=== PATIENT | female | born 1935 | race Caucasian/White ===

== ENCOUNTER 2021-08-31 10:47 | Emergency (ER) | payer MEDICARE, SELFPAY ==
--- NOTE | ~2021-08-31 | XR_ITS ---
EXAMINATION: XR CHEST CLINICAL INFORMATION: Weakness COMPARISON: Previous chest x-ray June 2016 TECHNIQUE: Frontal view of the chest was obtained. FINDINGS: The cardiac silhouette is slightly enlarged but stable. Hilar and mediastinal contours are unremarkable. The lungs are clear. There is no pleural effusion or pneumothorax. Bony structures are unremarkable. XR/XR chest 1V IMPRESSION: No evidence for acute disease in the chest.
[2021-08-31 10:56] VITALS: BP 138/66; BP 150/57; PULSE 79; PULSE 83; RESP 16; TEMP 36.8; O2SAT 96; O2SAT 99; BMI 25.7
[2021-08-31 11:06] LABS: Glucose, Whole Blood 130 mg/dL (60-115)
--- NOTE | 2021-08-31 11:15 | ED_ITS ---
HPI - General Adult General Chief complaint: General Medical Stated complaint: HYPOGLYCEMIA,LOWERED SELF TO FLOOR Time Seen by Provider: 08/31/21 11:15 Source: patient and EMS Mode of arrival: EMS Limitations: no limitations History of Present Illness HPI narrative: 85-year-old female came in by ambulance for evaluation of transient feeling of weakness. This is an 85-year-old female who live in apartment independently and alone, has insulin-dependent diabetes regulate her diabetes with insulin, patient slid of the couch this morning and eased herself on the ground, patient was sitting on the ground, could not get herself back up had to call EMS, on arrival patient's blood sugar was in the 70s which is normal range for the patient but was awake and alert and oriented, patient had no symptoms, was convinced by EMS to come to the hospital for checkup. Patient in the emergency department has no headache, no neck pain, no chest pain, no feeling of syncope, no abdominal pain, no nausea, no vomiting, no diarrhea, no urinary frequency or pain with urination. Patient is been feeling her normal state of health. Related Data Previous Rx's Medication Instructions Recorded nitrofurantoin 100 mg PO Q12H 5 Days #10 cap 08/31/21 monohydrate/macrocrystals 100 mg capsule (Macrobid) Allergies Allergy/AdvReac Type Severity Reaction Status Date / Time No Known Allergies Allergy Unverified 02/27/20 17:24 [No Known Allergies*] Review of Systems Review of Systems: All other systems are reviewed and are negative Constitutional: Reports as per HPI and Reports no additional constitutional complaints Eyes: Reports as per HPI and Reports no additional eye complaints Reports system reviewed and no additional complaints, except as documented Cardiovascular: Reports as per HPI and Reports no additional cardiovascular complaints Respiratory: Reports as per HPI and Reports no additional respiratory complaints Gastrointestinal: Reports as per HPI and Reports no additional gastrointestinal complaints Genitourinary: Reports no additional female genitourinary complaints Musculoskeletal: Reports no additional musculoskeletal complaints Skin/Breast: Reports system reviewed and no additional complaints, except as docu Psychiatric: Reports no additional psychiatric complaints Endocrine: Reports no additional endocrine complaints Hematologic/Lymphatic: Reports no additional hematologic/lymphatic complaints Allergic/Immunologic: Reports no additional allergic/immunologic complaints Reports system reviewed and no additional complaints, except as documented and Reports Abnormal speech present [facility] Past Medical History Medical History Diabetes Neuropathy Retinopathy Social History Social History Smoked in Last 30 Days: No Use of substances other than those prescribed or required for medical reasons: No Advance Directives: Yes Advance Directives Information Provided: Yes Advance Directives on File: No Physical Exam ED Vital Signs: Vital Signs - 24 hr 08/31/21 10:56 08/31/21 13:03 Temperature 98.3 F 98.2 F Pulse Rate 79 99 Respiratory Rate 16 16 Blood Pressure 150/57 H 139/44 L Pulse Oximetry 99 99 BMI result Body Mass Index 25.7 Vital signs have been reviewed as appeared to be correct. Blood pressure fredy l. Heart rate normal. Respiration rate normal. Temperature normal. Oxygen saturation normal. Appearance: Alert. Oriented X3. No acute distress. Head: Normal external exam. Normocephalic. Atraumatic. No Olson signs noted. No raccoon eyes noted Eyes: PERRLA. EOMI. Conjunctiva and sclera normal. Eyelids normal. ENT: TM's Normal. Pharynx normal. Uvula midline. Moist mucous membranes. No trismus noted. No drooling noted. No muffled voice noted. Neck: Normal inspection. Neck supple. FROM. No adenopathy. Thyroid Normal. No meningeal signs. No neck mass noted. CVS: Normal heart rate and rhythm. Heart sound normal. No murmurs noted. Pulses normal throughout. Respiratory: No respiratory distress. Painless inspiration. Breath sounds normal. No wheezes/rales/rhonchi noted. Chest nontender. No accessory muscle usage noted or decreased air movement noted. Abdomen: Soft and nontender. Bowel sounds normal in all 4 quadrants. No distention noted. No organomegaly noted. No visible injury noted. Back: No CVA tenderness. Full range of motion noted. Skin: Skin warm and dry. Normal skin color. Normal skin turgor. No rashes/lesions/lacerations noted. Extremities: No lower extremity edema. Extremities exhibit normal range of motion. Extremities nontender. Neuro: Oriented X 3. Cranial nerve exam: II-XII are grossly intact No motor deficit. No sensory deficit. Reflexes normal. Course Course Course Narrative: Assessment and plan. 85-year-old female came in by ambulance after she had a mechanical fall that she was able to manage and use up the fall, patient in the emergency department has no symptoms, blood workup is unrevealing, chest x-ray and EKG were unremarkable as well. Has no UTIs symptoms complain in the emergency department UA is indicating UTI. is safe to be discharged back home on Macrobid for 5 days with instruction of drinking plenty of fluids. Medical Decision Making Medical Records Medical records reviewed: Yes I reviewed the patient's medical records. Lab Data Lab results reviewed: Yes I reviewed the patient's lab results. Result diagrams: 08/31/21 11:58 08/31/21 11:58 Labs: Lab Results 08/31/21 08/31/21 08/31/21 Range/Units 10:55 11:58 11:58 WBC 6.8 (4.8-10.8) X10*3/uL RBC 3.46 L (4.20-5.50) X10*6/uL Hgb 11.7 L (12.0-16.0) g/dl Hct 35.4 L (37.0-47.0) % MCV 102.3 H (80.0-98.0) fL MCH 33.8 H (27.0-33.0) pg MCHC 33.1 (31.0-35.0) g/dl RDW 12.5 (11.0-16.0) % Plt Count 178 (160-400) X10*3/uL MPV 11.2 (9.4-12.3) fL Immature Gran % (Auto) 0.3 (0.0-0.4) % Neut % (Auto) 84.8 H (45-73) % Lymph % (Auto) 7.8 L (20-40) % [place] % (Auto) 6.4 (2-11) % Eos % (Auto) 0.4 (0-4) % Baso % (Auto) 0.3 (0-2) % Lymph # (Auto) 0.5 L (1.2-4.9) X10*3/uL [place] # (Auto) 0.4 (0.1-1.2) X10*3/uL Eos # (Auto) 0.0 (0.0-0.4) X10*3/uL Baso # (Auto) 0.0 (0.0-0.2) X10*3/uL Abs Immat Gran (auto) 0.02 (0.00-0.03) X10*3/uL Absolute Neuts (auto) 5.7 (2.0-8.3) x10*3/uL Absolute Nucleated RBC 0.000 (0.0-0.012) X10*3/uL Nucleated RBC % (auto) 0.0 (0.0-0.2) /100WBC Sodium 139 (135-145) mmol/L Potassium 4.8 (3.3-5.1) mmol/L Chloride 108 (96-108) mmol/L Carbon Dioxide 23 (22-29) mmol/L Anion Gap 13 (12-20) BUN 22 H (9-16) mg/dL Creatinine 1.05 (0.5-1.4) mg/dL Estim Creat Clear Calc 38.4 Estimated GFR 50 POC Glucose 130 H (60-115) mg/dL Random Glucose 182 H (60-115) mg/dL Calcium 9.0 (8.4-10.2) mg/dL Total Bilirubin 1.1 H (0.0-1.0) mg/dL Direct Bilirubin 0.4 (0.0-0.5) mg/dL AST 19 (5-31) U/L ALT 15 (0-31) U/L Alkaline Phosphatase 78 (39-117) U/L Troponin I High Sens (<3.5-17.0) ng/L Total Protein 6.3 L (6.5-8.0) g/dL Albumin 3.9 (3.5-5.0) g/dL Lipase 8 (8-78) U/L Urine Color Urine Appearance Urine pH (5.0-8.0) Ur Specific [place] (1.005-1.025) Urine Protein (NEG-TRACE) MG/DL Urine Glucose (UA) (NEG) MG/DL Urine Ketones (NEG) MG/DL Urine Blood (NEG) Urine Nitrite (NEG) Ur Leukocyte Esterase (NEG) Urine RBC (0) /HPF Urine WBC (0-4) /HPF Ur Squamous Epith Cells /LPF Urine Bacteria /LPF 08/31/21 08/31/21 Range/Units 11:58 13:52 WBC (4.8-10.8) X10*3/uL RBC (4.20-5.50) X10*6/uL Hgb (12.0-16.0) g/dl Hct (37.0-47.0) % MCV (80.0-98.0) fL MCH (27.0-33.0) pg MCHC (31.0-35.0) g/dl RDW (11.0-16.0) % Plt Count (160-400) X10*3/uL MPV (9.4-12.3) fL Immature Gran % (Auto) (0.0-0.4) % Neut % (Auto) (45-73) % Lymph % (Auto) (20-40) % [place] % (Auto) (2-11) % Eos % (Auto) (0-4) % Baso % (Auto) (0-2) % Lymph # (Auto) (1.2-4.9) X10*3/uL [place] # (Auto) (0.1-1.2) X10*3/uL Eos # (Auto) (0.0-0.4) X10*3/uL Baso # (Auto) (0.0-0.2) X10*3/uL Abs Immat Gran (auto) (0.00-0.03) X10*3/uL Absolute Neuts (auto) (2.0-8.3) x10*3/uL Absolute Nucleated RBC (0.0-0.012) X10*3/uL Nucleated RBC % (auto) (0.0-0.2) /100WBC Sodium (135-145) mmol/L Potassium (3.3-5.1) mmol/L Chloride (96-108) mmol/L Carbon Dioxide (22-29) mmol/L Anion Gap (12-20) BUN (9-16) mg/dL Creatinine (0.5-1.4) mg/dL Estim Creat Clear Calc Estimated GFR POC Glucose (60-115) mg/dL Random Glucose (60-115) mg/dL Calcium (8.4-10.2) mg/dL Total Bilirubin (0.0-1.0) mg/dL Direct Bilirubin (0.0-0.5) mg/dL AST (5-31) U/L ALT (0-31) U/L Alkaline Phosphatase (39-117) U/L Troponin I High Sens 6.9 (<3.5-17.0) ng/L Total Protein (6.5-8.0) g/dL Albumin (3.5-5.0) g/dL Lipase (8-78) U/L Urine Color YELLOW Urine Appearance CLOUDY Urine pH 5.5 (5.0-8.0) Ur Specific [place] 1.025 (1.005-1.025) Urine Protein NEG (NEG-TRACE) MG/DL Urine Glucose (UA) NEG (NEG) MG/DL Urine Ketones NEG (NEG) MG/DL Urine Blood 1+ H (NEG) Urine Nitrite POS H (NEG) Ur Leukocyte Esterase 3+ H (NEG) Urine RBC 0 (0) /HPF Urine WBC 30-49 H (0-4) /HPF Ur Squamous Epith Cells 1+ /LPF Urine Bacteria 2+ /LPF Imaging Data Chest x-ray: Attestation: I personally reviewed and interpreted this imaging study as follows: Radiologist's impression: No evidence for acute disease in the chest. ECG Data Attestation: I personally reviewed and interpreted this ECG as follows: Interpretation: Normal sinus rhythm at 80 beats per minutes, left axis diffusion, normal intervals, no significant ST-T changes. Discharge Plan Discharge Clinical Impression: Accident due to mechanical fall without injury, UTI (urinary tract infection), uncomplicated Patient Disposition: Home, Self-Care Instructions: Urinary Tract Infection in Women (ED), Fall Prevention (ED) Prescriptions: New nitrofurantoin monohyd/m-cryst [Macrobid] 100 mg capsule 100 mg PO Q12H 5 Days Qty: 10 0RF Rx Instructions: must administer with a meal/food Referrals: Amish Ray MD [Primary Care Provider] - 2 days
--- NOTE | 2021-08-31 11:20 | PC.NURSE ---
DAUGHTER CALLS AND LEAVES NUMBER FOR UPDATES NATASHA CELL:[phone] HOME:[phone]
--- NOTE | 2021-08-31 11:21 | ECG_ITS ---
Test Reason : SYNCOPE Blood Pressure : / mmHG Vent. Rate : 080 BPM Atrial Rate : 080 BPM P-R Int : 154 ms QRS Dur : 074 ms QT Int : 392 ms P-R-T Axes : 037 -28 041 degrees QTc Int : 452 ms Sinus rhythm with Premature supraventricular complexes Otherwise normal ECG When compared with ECG of 27-JUN-2016 09:29, Premature supraventricular complexes are now Present Referred By: Gui Gutierrez Electronically Signed By:Parmjit Soto
[2021-08-31 12:04] LABS: MANUAL DIFF FLAG NO
[2021-08-31 12:06] LABS: Basophils Percent Auto 0.3 % (0-2); Eosinophils Percent Auto 0.4 % (0-4); Hematocrit 35.4 % (37.0-47.0); Hemoglobin 11.7 g/dl (12.0-16.0); Imm Gran Abs Auto 0.02 X10*3/uL (0.00-0.03); Imm Gran Pct Auto 0.3 % (0.0-0.4); Lymphocytes Absolute Auto 0.5 X10*3/uL (1.2-4.9); Lymphocytes Percent Auto 7.8 % (20-40); Mean Corpuscular HGB Conc 33.1 g/dl (31.0-35.0); Mean Corpuscular Hemoglobin 33.8 pg (27.0-33.0); Mean Corpuscular Volume 102.3 fL (80.0-98.0); Mean Platelet Volume 11.2 fL (9.4-12.3); Monocytes Absolute Auto 0.4 X10*3/uL (0.1-1.2); Monocytes Percent Auto 6.4 % (2-11); Neutrophils Absolute Auto 5.7 x10*3/uL (2.0-8.3); Neutrophils Percent Auto 84.8 % (45-73); Platelet Count 178 X10*3/uL (160-400); Red Blood Count 3.46 X10*6/uL (4.20-5.50); Red Cell Distribution Width 12.5 % (11.0-16.0); White Blood Count 6.8 X10*3/uL (4.8-10.8)
[2021-08-31 12:26] LABS: Alanine Aminotransferase 15 U/L (0-31); Albumin Level 3.9 g/dL (3.5-5.0); Alkaline Phosphatase 78 U/L (39-117); Anion Gap 13 (12-20); Aspartate Amino Transferase 19 U/L (5-31); Bilirubin Direct 0.4 mg/dL (0.0-0.5); Bilirubin Total 1.1 mg/dL (0.0-1.0); Blood Urea Nitrogen 22 mg/dL (9-16); Carbon Dioxide 23 mmol/L (22-29); Chloride 108 mmol/L (96-108); Creatinine Clr Calc Pharmacy 38.4; Estimated Glomerular Filt Rate 50; Glucose Random 182 mg/dL (60-115); Lipase 8 U/L (8-78); Potassium 4.8 mmol/L (3.3-5.1); Sodium 139 mmol/L (135-145); Total Protein 6.3 g/dL (6.5-8.0)
[2021-08-31 12:29] LABS: Troponin-I High Sensitivity 6.9 ng/L (<3.5-17.0)
[2021-08-31 13:03] VITALS: BP 139/44; PULSE 99; RESP 16; TEMP 36.8; O2SAT 99
[2021-08-31 14:17] LABS: Appearance Urine CLOUDY; Color Urine YELLOW; Glucose Urine UA NEG (NEG); Leukocyte Esterase Urine 3+ (NEG); Nitrite Urine POS (NEG); PH 5.5 (5.0-8.0); Specific Gravity - Urine 1.025 (1.005-1.025); UACC Culture Trigger YES; Urine Blood 1+ (NEG); Urine Ketones NEG (NEG); Urine Protein NEG (NEG-TRACE)
[2021-08-31 14:34] LABS: Bacteria Urine 2+ /LPF; RBC Urine 0 /HPF (0); Squamous Epithelial Cell Urine 1+ /LPF; WBC Urine 30-49 /HPF (0-4)
== END 2021-08-31 15:08 | disposition home or self-care (01) ==
PROVIDERS: Emergency Provider Emergency Medicine; PCP Internal Medicine Medical Oncology
DX: Z04.3 Encounter for examination and observation following other accident (principal); N39.0 Urinary tract infection, site not specified; R53.1 Weakness; E11.9 Type 2 diabetes mellitus without complications; Z79.4 Long term (current) use of insulin
CPT/HCPCS: 36415; 71045; 80048; 80076; 81001; 82947; 83690; 84484; 85025; 87086; 93005; 99283; 99284

== ENCOUNTER 2023-01-13 15:56 | Emergency (ER) | payer MEDICARE, SELFPAY ==
--- NOTE | ~2023-01-13 | XR_ITS ---
EXAMINATION: XR CHEST CLINICAL INFORMATION: Fatigue. COMPARISON: Chest radiograph 08/31/2021. TECHNIQUE: Frontal view of the chest was obtained. FINDINGS: Unchanged prominence of the cardiomediastinal silhouette. No focal airspace opacity, pleural effusion or pneumothorax. No acute osseous findings. The visualized upper abdomen is within normal limits. XR/XR chest 1V IMPRESSION: 1. No acute cardiopulmonary findings. 2. Unchanged prominence of the cardiomediastinal silhouette.
[2023-01-13 16:17] VITALS: BP 167/64; PULSE 81; O2SAT 98
[2023-01-13 16:30] LABS: Glucose, Whole Blood 43 mg/dL (60-115)
[2023-01-13 16:31] VITALS: BP 150/64; PULSE 82; RESP 18; TEMP 36.4; O2SAT 100; BMI 19.7
--- NOTE | 2023-01-13 16:43 | ECG_ITS ---
Test Reason : FALL Blood Pressure : / mmHG Vent. Rate : 077 BPM Atrial Rate : 077 BPM P-R Int : 148 ms QRS Dur : 074 ms QT Int : 420 ms P-R-T Axes : 071 -33 062 degrees QTc Int : 475 ms Normal sinus rhythm Possible Left atrial enlargement Left axis deviation Abnormal ECG When compared with ECG of 31-AUG-2021 11:45, Premature supraventricular complexes are no longer Present Referred By: Yeni Torres Electronically Signed By:BRITANY BAI
[2023-01-13 16:50] LABS: Glucose, Whole Blood 63 mg/dL (60-115)
--- NOTE | 2023-01-13 17:12 | ED.GENADULT ---
HPI - General Adult General Chief complaint: Fall Stated complaint: FEELING WEAK PT FELL EARLIER TODAY Time Seen by Provider: 01/13/23 16:42 Source: patient and old records reviewed Mode of arrival: EMS Limitations: no limitations History of Present Illness HPI narrative: 87 yo female who lives alone - hx of HTN and IDDM states she only take 15 units of lantus nightly no other medications and has been on it a while comes in with c/o low blood sugars for the past week and feeling weak she states she has a hard time eating the TV dinners and tries to make herself food. Her daughter does grocery shopping every 3 weeks for her and she always has food. The patient denies fevers, sig weight loss, chest pain, shortness of breath, fevers, dysuria. She has no symptoms with low BS she did not eat lunch today. EMS has come x 5 for lift assist this week. MD complaint: low blood sugars Onset (ago): week(s) (1) Severity: moderate Relieving factors: eating Exacerbating factors: none Associated symptoms: weakness Treatments prior to arrival: none Related Data Home Medications Medication Instructions Recorded Confirmed amlodipine 10 mg tablet 10 mg PO DAILY 01/13/23 01/13/23 insulin glargine 100 unit/mL 16 unit subcut QAM 01/13/23 01/13/23 subcutaneous solution (Lantus U-100 Insulin) lisinopril 2.5 mg tablet 2.5 mg PO BID 01/13/23 01/13/23 simvastatin 10 mg tablet 10 mg PO BEDTIME 01/13/23 01/13/23 Allergies Allergy/AdvReac Type Severity Reaction Status Date / Time No Known Allergies Allergy Verified 01/13/23 16:18 [No Known Allergies*] Review of Systems Review of Systems: Constitutional : No Fever, No Chills, No Fatigue ENT/Mouth : No sore throat, No Rhinorrhea Eyes: No Eye Pain, No Swelling, No Redness Cardiovascular : No Chest Pain, No SOB, No Dyspnea on Exertion Respiratory : No Cough, No Sputum Gastrointestinal : No Nausea, No Vomiting, No Diarrhea, No abdominal Pain Genitourinary : No Dysuria, No Urinary Frequency, No Hematuria, Musculoskeletal : No joint pain, No Myalgias, No Joint Swelling Skin : No Skin Lesions, No rash Neuro : pos Weakness, No Numbness, No Dizziness, no Headache Psych : No Anxiety/Panic, No Depression Heme/Lymph: No Bruising, No Bleeding,No Lymphadenopathy Endocrine : No Polyuria, No Polydipsia All other systems reviewed and are negative PMFSH Past Medical History Attestation statement: The following information was validated with the patient. Medical History Diabetes Neuropathy Retinopathy Social History Social History (Updated 01/13/23 @ 17:16 by Yeni Torres DO) Patient Tobacco Use Status: Never used Tobacco Smoked in Last 30 Days: No Use of substances other than those prescribed or required for medical reasons: No Advance Directives: No Advance Directives Information Provided: No Physical Exam ED Vital Signs: Vital Signs - 24 hr 01/13/23 16:31 01/13/23 17:54 01/13/23 20:24 Temperature 97.6 F 98.3 F 98.1 F Pulse Rate 82 86 79 Respiratory Rate 18 14 13 Blood Pressure 150/64 H 152/65 H 156/66 H Pulse Oximetry 100 99 100 Oxygen Delivery Method Room Air Room Air Room Air 01/13/23 22:26 01/14/23 00:52 Temperature 97.9 F 98.1 F Pulse Rate 79 62 Respiratory Rate 15 16 Blood Pressure 165/66 H 146/89 H Pulse Oximetry 98 99 Oxygen Delivery Method Room Air Room Air BMI result Body Mass Index 19.7 Appearance: Alert. Oriented X3. No acute distress. Eyes: Pupils equal, round and reactive to light. ENT: Pharynx normal. Neck: Normal inspection. Neck supple. CVS: Normal heart rate and rhythm. Pulses normal. Respiratory: No respiratory distress. Breath sounds normal. Abdomen: Soft and non-tender. Skin: Skin warm and dry. Normal skin color. Normal skin turgor. Extremities: No lower extremity edema. No calf ttp Neuro: Oriented X 3. No motor deficit. No sensory deficit. Course Course Course Narrative: blood sugar stable and eating, pending UA Reevaluation(s) Reevaluation #1: Patient placed in physician observation at 810pm. The indication for observation is that the patient needs more time to see PT and assess for safe DC. At this time the patient is well developed well nourished, lungs clear, CV RRR, abd nontender, neuro is intact. BS stable. + UA but no signs of sepsis to suggest cause of low BS started on ceftin BID Medications Administered Generic Name Dose Route Start Last Admin Trade Name Isidro PRN Reason Stop Dose Admin Cefuroxime Axetil 250 mg 01/13/23 21:00 01/13/23 20:35 Cefuroxime Axetil 250 Mg Tablet PO 01/20/23 20:59 250 mg BID NBA Administration Medical Decision Making Medical Decision Making [facility] Narrative: 87 yo female who lives alone - hx of HTN and IDDM here with c/o low blood sugar x 1 week without symptoms no change in medications sounds like she has somewhat poor PO intake but denies abdominal pain fevers or sig weight loss and denies headache - at this time I am going to obtain basic labs, UA, EKG and monitor possible admission vs case management given she lives alone and does not feel her low blood sugars Differential Diagnosis Differential Diagnoses: The differential diagnosis associated with the presentation includes insulin overuse, poor PO intake, FTT, weight loss, cancer Admission/Observation Consideration of admission/observation: Escalation of care including admission/observation considered will need observation for PT/CM and safe placement for discharge planning Consult Healthcare Provider Management of the patient was discussed with: Web Site Specialist (case management) Lab Data [facility] Lab Attestation statement: I reviewed the patient's lab results. 01/13/23 17:19 01/13/23 17:19 Labs: Lab Results 01/13/23 01/13/23 01/13/23 Range/Units 16:22 16:47 17:19 WBC 5.7 (4.8-10.8) X10*3/uL RBC 3.42 L (4.20-5.50) X10*6/uL Hgb 11.4 L (12.0-16.0) g/dl Hct 34.9 L (37.0-47.0) % MCV 102.0 H (80.0-98.0) fL MCH 33.3 H (27.0-33.0) pg MCHC 32.7 (31.0-35.0) g/dl RDW 12.7 (11.0-16.0) % Plt Count 197 (160-400) X10*3/uL MPV 10.3 (9.4-12.3) fL Immature Gran % (Auto) 0.4 (0.0-0.4) % Neut % (Auto) 84.6 H (45-73) % Lymph % (Auto) 8.9 L (20-40) % [place] % (Auto) 5.3 (2-11) % Eos % (Auto) 0.4 (0-4) % Baso % (Auto) 0.4 (0-2) % Lymph # (Auto) 0.5 L (1.2-4.9) X10*3/uL [place] # (Auto) 0.3 (0.1-1.2) X10*3/uL Eos # (Auto) 0.0 (0.0-0.4) X10*3/uL Baso # (Auto) 0.0 (0.0-0.2) X10*3/uL Abs Immat Gran (auto) 0.02 (0.00-0.03) X10*3/uL Absolute Neuts (auto) 4.8 (2.0-8.3) x10*3/uL Absolute Nucleated RBC 0.000 (0.0-0.012) X10*3/uL Nucleated RBC % (auto) 0.0 (0.0-0.2) /100WBC Sodium (135-145) mmol/L Potassium (3.3-5.1) mmol/L Chloride (96-108) mmol/L Carbon Dioxide (22-29) mmol/L Anion Gap (12-20) BUN (9-16) mg/dL Creatinine (0.5-1.4) mg/dL Estim Creat Clear Calc Estimated GFR POC Glucose 43 L* 63 (60-115) mg/dL Random Glucose (60-115) mg/dL Calcium (8.4-10.2) mg/dL Magnesium (1.6-2.6) mg/dL Total Bilirubin (0.0-1.0) mg/dL Direct Bilirubin (0.0-0.5) mg/dL AST (5-31) U/L ALT (0-31) U/L Alkaline Phosphatase (39-117) U/L C-Reactive Protein (< or = 0.50) mg/dL Total Protein (6.5-8.0) g/dL Albumin (3.5-5.0) g/dL Lipase (8-78) U/L TSH (0.32-4.0) uIU/mL Urine Color Urine Appearance Urine pH (5.0-9.0) Ur Specific [place] (1.005-1.025) Urine Protein (Neg-Trace) mg/dL Urine Glucose (UA) (Negative) mg/dL Urine Ketones (Negative) mg/dL Urine Blood (Negative) Urine Nitrite (Negative) Ur Leukocyte Esterase (Negative) Urine RBC (0-2) /HPF Urine WBC (0-5) /HPF Ur Squamous Epith Cells (0-2) /HPF Urine Bacteria (None Seen) Hyaline Casts (0-2) /LPF 01/13/23 01/13/23 01/13/23 Range/Units 17:19 18:10 19:36 WBC (4.8-10.8) X10*3/uL RBC (4.20-5.50) X10*6/uL Hgb (12.0-16.0) g/dl Hct (37.0-47.0) % MCV (80.0-98.0) fL MCH (27.0-33.0) pg MCHC (31.0-35.0) g/dl RDW (11.0-16.0) % Plt Count (160-400) X10*3/uL MPV (9.4-12.3) fL Immature Gran % (Auto) (0.0-0.4) % Neut % (Auto) (45-73) % Lymph % (Auto) (20-40) % [place] % (Auto) (2-11) % Eos % (Auto) (0-4) % Baso % (Auto) (0-2) % Lymph # (Auto) (1.2-4.9) X10*3/uL [place] # (Auto) (0.1-1.2) X10*3/uL Eos # (Auto) (0.0-0.4) X10*3/uL Baso # (Auto) (0.0-0.2) X10*3/uL Abs Immat Gran (auto) (0.00-0.03) X10*3/uL Absolute Neuts (auto) (2.0-8.3) x10*3/uL Absolute Nucleated RBC (0.0-0.012) X10*3/uL Nucleated RBC % (auto) (0.0-0.2) /100WBC Sodium 144 (135-145) mmol/L Potassium 4.7 (3.3-5.1) mmol/L Chloride 109 H (96-108) mmol/L Carbon Dioxide 22 (22-29) mmol/L Anion Gap 18 (12-20) BUN 25 H (9-16) mg/dL Creatinine 0.85 (0.5-1.4) mg/dL Estim Creat Clear Calc 42.2 Estimated GFR > 60 POC Glucose 109 (60-115) mg/dL Random Glucose 103 (60-115) mg/dL Calcium 9.1 (8.4-10.2) mg/dL Magnesium 2.5 (1.6-2.6) mg/dL Total Bilirubin 1.5 H (0.0-1.0) mg/dL Direct Bilirubin 0.5 (0.0-0.5) mg/dL AST 28 (5-31) U/L ALT 13 (0-31) U/L Alkaline Phosphatase 72 (39-117) U/L C-Reactive Protein 0.36 (< or = 0.50) mg/dL Total Protein 6.9 (6.5-8.0) g/dL Albumin 4.2 (3.5-5.0) g/dL Lipase 9 (8-78) U/L TSH 0.90 (0.32-4.0) uIU/mL Urine Color Yellow Urine Appearance Clear Urine pH 6.0 (5.0-9.0) Ur Specific [place] 1.020 (1.005-1.025) Urine Protein 30 (1+) H (Neg-Trace) mg/dL Urine Glucose (UA) Negative (Negative) mg/dL Urine Ketones Trace (Negative) mg/dL Urine Blood Negative (Negative) Urine Nitrite Positive H (Negative) Ur Leukocyte Esterase Moderate (2+) H (Negative) Urine RBC 0-2 (0-2) /HPF Urine WBC >50 H (0-5) /HPF Ur Squamous Epith Cells 0-2 (0-2) /HPF Urine Bacteria 4+ (None Seen) Hyaline Casts 0-2 (0-2) /LPF 01/13/23 Range/Units 20:34 WBC (4.8-10.8) X10*3/uL RBC (4.20-5.50) X10*6/uL Hgb (12.0-16.0) g/dl Hct (37.0-47.0) % MCV (80.0-98.0) fL MCH (27.0-33.0) pg MCHC (31.0-35.0) g/dl RDW (11.0-16.0) % Plt Count (160-400) X10*3/uL MPV (9.4-12.3) fL Immature Gran % (Auto) (0.0-0.4) % Neut % (Auto) (45-73) % Lymph % (Auto) (20-40) % [place] % (Auto) (2-11) % Eos % (Auto) (0-4) % Baso % (Auto) (0-2) % Lymph # (Auto) (1.2-4.9) X10*3/uL [place] # (Auto) (0.1-1.2) X10*3/uL Eos # (Auto) (0.0-0.4) X10*3/uL Baso # (Auto) (0.0-0.2) X10*3/uL Abs Immat Gran (auto) (0.00-0.03) X10*3/uL Absolute Neuts (auto) (2.0-8.3) x10*3/uL Absolute Nucleated RBC (0.0-0.012) X10*3/uL Nucleated RBC % (auto) (0.0-0.2) /100WBC Sodium (135-145) mmol/L Potassium (3.3-5.1) mmol/L Chloride (96-108) mmol/L Carbon Dioxide (22-29) mmol/L Anion Gap (12-20) BUN (9-16) mg/dL Creatinine (0.5-1.4) mg/dL Estim Creat Clear Calc Estimated GFR POC Glucose 139 H (60-115) mg/dL Random Glucose (60-115) mg/dL Calcium (8.4-10.2) mg/dL Magnesium (1.6-2.6) mg/dL Total Bilirubin (0.0-1.0) mg/dL Direct Bilirubin (0.0-0.5) mg/dL AST (5-31) U/L ALT (0-31) U/L Alkaline Phosphatase (39-117) U/L C-Reactive Protein (< or = 0.50) mg/dL Total Protein (6.5-8.0) g/dL Albumin (3.5-5.0) g/dL Lipase (8-78) U/L TSH (0.32-4.0) uIU/mL Urine Color Urine Appearance Urine pH (5.0-9.0) Ur Specific [place] (1.005-1.025) Urine Protein (Neg-Trace) mg/dL Urine Glucose (UA) (Negative) mg/dL Urine Ketones (Negative) mg/dL Urine Blood (Negative) Urine Nitrite (Negative) Ur Leukocyte Esterase (Negative) Urine RBC (0-2) /HPF Urine WBC (0-5) /HPF Ur Squamous Epith Cells (0-2) /HPF Urine Bacteria (None Seen) Hyaline Casts (0-2) /LPF Independent Interpretation I performed an independent interpretation of an: EKG and Plain X-Ray (normal CXR no acute findings) Interpretation: Rate: 77 Rhythm: NSR [place]: left Normal P waves. Normal ALEX. Normal QRS complex. ST T wave : normal no FELICITA qTC: normal prior studies: no acute ischemia The study has been interpreted contemporaneously by me. . Radiology Impression Discussion of test interpretation with radiology: I have reviewed the radiologist's reading. Independent Historian Clinical information obtained from an independent historian. History obtained from or confirmed by: EMS External Record Review External record reviewed: Inpatient record Chronic Conditions Patient?s care impacted by: Diabetes Social Determinants Patient?s care significantly limited by Social Determinants of Health including: Problems related to primary support group Discharge Plan Discharge Clinical Impression: Hypoglycemia, UTI (urinary tract infection), uncomplicated Patient Disposition: Still a Patient Prescriptions: No Action simvastatin 10 mg tablet 10 mg PO BEDTIME amlodipine 10 mg tablet 10 mg PO DAILY lisinopril 2.5 mg tablet 2.5 mg PO BID insulin glargine [Lantus U-100 Insulin] 100 unit/mL solution 16 unit subcut QAM
[2023-01-13 17:27] LABS: MANUAL DIFF FLAG NO
[2023-01-13 17:34] LABS: Basophils Percent Auto 0.4 % (0-2); Eosinophils Percent Auto 0.4 % (0-4); Hematocrit 34.9 % (37.0-47.0); Hemoglobin 11.4 g/dl (12.0-16.0); Imm Gran Abs Auto 0.02 X10*3/uL (0.00-0.03); Imm Gran Pct Auto 0.4 % (0.0-0.4); Lymphocytes Absolute Auto 0.5 X10*3/uL (1.2-4.9); Lymphocytes Percent Auto 8.9 % (20-40); Mean Corpuscular HGB Conc 32.7 g/dl (31.0-35.0); Mean Corpuscular Hemoglobin 33.3 pg (27.0-33.0); Mean Platelet Volume 10.3 fL (9.4-12.3); Monocytes Absolute Auto 0.3 X10*3/uL (0.1-1.2); Monocytes Percent Auto 5.3 % (2-11); Neutrophils Absolute Auto 4.8 x10*3/uL (2.0-8.3); Neutrophils Percent Auto 84.6 % (45-73); Platelet Count 197 X10*3/uL (160-400); Red Blood Count 3.42 X10*6/uL (4.20-5.50); Red Cell Distribution Width 12.7 % (11.0-16.0); White Blood Count 5.7 X10*3/uL (4.8-10.8)
--- NOTE | 2023-01-13 17:50 | PC.NURSE ---
update ot daughter Gisela.
[2023-01-13 17:54] VITALS: BP 152/65; PULSE 86; RESP 14; TEMP 36.8; O2SAT 99
[2023-01-13 18:13] LABS: Glucose, Whole Blood 109 mg/dL (60-115)
[2023-01-13 18:17] LABS: Alanine Aminotransferase 13 U/L (0-31); Albumin Level 4.2 g/dL (3.5-5.0); Alkaline Phosphatase 72 U/L (39-117); Anion Gap 18 (12-20); Aspartate Amino Transferase 28 U/L (5-31); Bilirubin Direct 0.5 mg/dL (0.0-0.5); Bilirubin Total 1.5 mg/dL (0.0-1.0); Blood Urea Nitrogen 25 mg/dL (9-16); C Reactive Protein 0.36 mg/dL (< or = 0.50); Calcium 9.1 mg/dL (8.4-10.2); Carbon Dioxide 22 mmol/L (22-29); Chloride 109 mmol/L (96-108); Creatinine Clr Calc Pharmacy 42.2; Estimated Glomerular Filt Rate > 60; Glucose Random 103 mg/dL (60-115); Lipase 9 U/L (8-78); Magnesium 2.5 mg/dL (1.6-2.6); Potassium 4.7 mmol/L (3.3-5.1); Sodium 144 mmol/L (135-145); Total Protein 6.9 g/dL (6.5-8.0)
[2023-01-13 19:50] LABS: Appearance Urine Clear; Color Urine Yellow; Glucose Urine UA Negative (Negative); Leukocyte Esterase Urine Moderate (2+) (Negative); Nitrite Urine Positive (Negative); UMIC TRIGGER UACC YES; Urine Blood Negative (Negative); Urine Ketones Trace mg/dL (Negative); Urine Protein 30 (1+) mg/dL (Neg-Trace)
[2023-01-13 19:54] LABS: Bacteria Urine 4+ (None Seen); Hyaline Casts Urine 0-2 /LPF (0-2); RBC Urine 0-2 /HPF (0-2); Squamous Epithelial Cell Urine 0-2 /HPF (0-2); UACC Culture Trigger YES; WBC Urine >50 /HPF (0-5)
[2023-01-13 20:24] VITALS: BP 156/66; PULSE 79; RESP 13; TEMP 36.7; O2SAT 100
[2023-01-13 20:37] LABS: Glucose, Whole Blood 139 mg/dL (60-115)
[2023-01-13 22:26] VITALS: BP 165/66; PULSE 79; RESP 15; TEMP 36.6; O2SAT 98
--- NOTE | 2023-01-13 22:39 | MHC.CM.ED ---
Per medical record, patient called EMS for lift assistance 5 times this [id number] falls and weakness. sometimes low blood sugars. CM spoke with patient. She only remembers calling 2 times. States she thought she was eating okay, but maybe she isn't. Pt is forgetful, but is a good historian regarding address, medical concerns, PCP, daughter and where she lives. Pt lives alone. Has [employer] 2 hours/wk for light housekeeping and companionship. Pt has a walker athat she does not always use in her apartment. Does not have a life line. Daughter, Rosina Holland ([phone] cell , home [phone]) tells CM that her mother has been getting more forgetful, hasn't eaten as much over the past 6 weeks and was unaware that her mother called EMS for assistance 5 times in the last week. Rosina tells CM that her mother does not always tell her if she is having issues and she lives in [place], [place]. and sees her about once a month, for grocery shopping, cleaning and laundry. Daughter provides transport to doctor visits. [place] tells CM that [facility] services saw her mother about a year ago, as a report was filed with some concerns (she was not sure who filed), but the senior fund accountant felt her mother was safe to live alone with some help. Family does not have money for more home services and patient cannot live with her. Family aware that patient may need transition to LTC in the near future, but have no funds and states her mother was on the PACE program, but had too many funds to qualify for . States her mother had some life insurance and a pension. CM referred daughter and to [facility] for information. Telephone number given. Pt has UTI, but will not be admitted. D/C plan: PT evaluation in the morning with possible STR. Pt has [employer] options and Medicare. Referrals placed locally. CM following for discharge planning.
[2023-01-14 00:52] VITALS: BP 146/89; PULSE 62; RESP 16; TEMP 36.7; O2SAT 99
[2023-01-14 03:48] LABS: Estimated Average Glucose 117 mg/dL; Hemoglobin A1c % 5.7 %
[2023-01-14 04:38] VITALS: BP 153/61; PULSE 70; RESP 15; TEMP 37.1; O2SAT 100
[2023-01-14] MEDS: Acetaminophen 325 MG TABLET 650 MG PO ×2 (06:19→23:03)
[2023-01-14 06:20] VITALS: BP 151/54; PULSE 76; RESP 13; O2SAT 99
[2023-01-14 07:13] VITALS: BP 149/60; PULSE 74; RESP 13; TEMP 37.1; O2SAT 100
--- NOTE | 2023-01-14 08:16 | PC.NURSE ---
PT in to see pt
[2023-01-14 08:29] VITALS: BP 149/60; PULSE 74; O2SAT 100
--- NOTE | 2023-01-14 09:21 | MHC.EDTECH ---
AM care change lined , reposition to right side. RN aware
[2023-01-14 09:47] LABS: Glucose, Whole Blood 179 mg/dL (60-115)
[2023-01-14 10:28] VITALS: BP 157/62; PULSE 76; RESP 12; O2SAT 98
[2023-01-14] MEDS: lisinopriL 2.5 MG TABLET PO ×2 (10:29→21:29)
[2023-01-14] MEDS: amLODIPine Besylate 10 MG TABLET PO (10:29)
--- NOTE | 2023-01-14 11:00 | MHC.CM.ED ---
Addendum entered by Nany Jackson 01/14/23 16:45: Pt being considered by [facility]: no beds today: will revisit on 01/15. Met w/pt's dtr and son in law who reside 2 [place] but assist pt every week w/groceries and cleaning. Dtr states pt's mental status has declined significantly in the past 6 months with memory lapses, confabulation, and minimizing serious situations/safety. Dtr is concerned that pt has undiagnosed dementia. Reported concerns to ED provider for eval and/or consult needs. Addendum entered by Nany Jackson 01/14/23 12:28: Referred to all 3 acute rehab centers in the hope they may be able to offer a short term stay. Pt in agreement with plan: will await determination. Original Note: PT eval recommends STR: Met w/pt to review. Pt cannot access her Medicare SNF benefit d/t lack of qualifying 3 midnight stay in 30 days. Pt does not have Medicaid or other policy that would fund STR. Pt's dtr aware of this and was given contact information for [facility]. Several STR centers are interested but are requesting payor source. Family to contact [facility] on Monday. Review of EMR does not support INPT for medical needs. Updated ED PA - no safe d/c plan at this time - pt will board in the ED until disposition can be arranged.
--- NOTE | 2023-01-14 11:05 | PC.NURSE ---
CM at bedside
--- NOTE | 2023-01-14 11:20 | PC.NURSE ---
pt moved into a hospital bed for comfort
[2023-01-14 12:58] LABS: Glucose, Whole Blood 159 mg/dL (60-115)
--- NOTE | 2023-01-14 20:33 | PC.NURSE ---
I assumed care of the pt at 1900. Pt resting quietly in bed, Alert and oriented to person and place. Pt was asking for her bed to be pushed back into her room and out of the hallway. Pt's bed was already positioned against the back wall of her room. Pt otherwise has no complaints and is comfortable in bed at this time.
[2023-01-14] MEDS: Atorvastatin Calcium 10 MG TABLET PO (21:29)
[2023-01-15 03:53] VITALS: BP 149/57; PULSE 67; RESP 12; TEMP 36.9; O2SAT 99
[2023-01-15 07:14] LABS: Glucose, Whole Blood 261 mg/dL (60-115)
[2023-01-15 08:51] LABS: Glucose, Whole Blood 299 mg/dL (60-115)
[2023-01-15] MEDS: amLODIPine Besylate 10 MG TABLET PO (09:21)
[2023-01-15] MEDS: lisinopriL 2.5 MG TABLET PO (09:21)
[2023-01-15] MEDS: Insulin Glargine,Hum.rec.anlog 100 UNIT/ML 10 ML VIAL 16 UNIT SUBCUT (10:04)
--- NOTE | 2023-01-15 10:08 | PC.NURSE ---
assumed care of pt at 0700. pt alert and oriented to person and place. resting quietly in hospital bed, no complaints at this time. pt poc 299, provider aware and ordered pt Lantus. pt medicated per aug. pt needs are met hugh, call dean within reach
--- NOTE | 2023-01-15 11:42 | MHC.CM.ED ---
Pt has been accepted to [facility] for a 2:45 pm arrival time. [facility] arranged for a 2pm p/u. Pt aware and in agreement: HCP completed and uploaded to [employer]. Message left w/dtr Rosina to inform her of plan. ED care team aware of d/c plan.
[2023-01-15 11:49] LABS: Glucose, Whole Blood 236 mg/dL (60-115)
[2023-01-15 11:53] VITALS: BP 158/63; PULSE 76; RESP 16; TEMP 37.2; O2SAT 99
[2023-01-15 14:00] VITALS: RESP 16
== END 2023-01-15 14:10 | disposition home or self-care (01) ==
PROVIDERS: Emergency Provider Emergency Medicine; PCP Internal Medicine Medical Oncology
DX: E11.649 Type 2 diabetes mellitus with hypoglycemia without coma (principal); N39.0 Urinary tract infection, site not specified; B96.1 Klebsiella pneumoniae [K. pneumoniae] as the cause of diseases classified elsewhere; R53.1 Weakness; Z79.4 Long term (current) use of insulin; Z79.899 Other long term (current) drug therapy
CPT/HCPCS: 36415; 51701; 71045; 80048; 80076; 81001; 82947; 83036; 83690; 83735; 84443; 85025; 86140; 87086; 87088; 87186; 93005; 97161; 99285

== ENCOUNTER → 2023-01-13 16:43 | Outpatient (BNV) | payer MEDICARE, SELFPAY | PROVIDERS: Emergency Provider Emergency Medicine; PCP Internal Medicine Medical Oncology; Visit Provider Internal Medicine | DX: R94.31 Abnormal electrocardiogram [ECG] [EKG] (principal) | CPT/HCPCS: 93010 ==